=== PATIENT | female | born 1990 | race African-American/Black ===

== ENCOUNTER 2018-04-24 22:43 | Emergency (ER) | payer OTHER ==
[2018-04-24 22:52] VITALS: BP 140/77; PULSE 77; TEMP 98.6
--- NOTE | 2018-04-24 23:26 | PDOC ---
*Physical Exam - Vital Signs Last Vital Signs Temp Pulse Resp BP Pulse Ox 98.6 F 77 16 140/77 100 04/24/18 22:47 04/24/18 22:47 04/24/18 22:47 04/24/18 22:47 04/24/18 22:47 ED Treatment Course - LABORATORY CBC & Chemistry Diagram: 04/25/18 00:00 04/25/18 00:30 Medical Decision Making - Medical Decision Making 04/24/18 23:26 Pt seen by Midlevel Provider under my direct supervision Pt interviewed and examined Ancillary studies reviewed Laboratory Tests 04/25/18 04/25/18 00:00 00:00 WBC 5.5 Hgb 13.3 Hct 36.9 Plt Count 289 Urine Nitrite Negative Ur Leukocyte Esterase Trace Urine WBC (Auto) 3 Urine RBC (Auto) 1 Ur Epithelial Cells Few IMPRESSION: 1. Single living intrauterine gestation at 6 weeks 4 days plus or minus a standard deviation by crown-rump length. heart rate is 125 beats per minute. No subchorionic bleed identified. No ectopic seen. Will send Urine culture (UA not particularly concerning but given , would like to r/o asymptomatic bacteuria) Laboratory Tests 04/25/18 00:31 Blood Type AB POSITIVE I agree with plan as outlined by Midlevel Provider *DC/Admit/Observation/Transfer Diagnosis at time of Disposition: Threatened - Discharge Dispostion Disposition: HOME Condition at time of disposition: Good - Referrals - Patient Instructions Printed Discharge Instructions: DI for Threatened Additional Instructions: Thank you for choosing [facility]. It was a pleasure taking care of you. Your pelvic ultrasound was normal Recommend pelvic rest. Continue follow-up with your [facility] Return to the Emergency Department if your symptoms worsen or persist, you have fever, shortness of breath, chest pain, severe abdominal pain, vomiting, heavy vaginal bleeding or other concerning symptoms. - Post Discharge Activity
--- NOTE | 2018-04-24 23:54 | PDOC ---
History of Present Illness - General Chief Complaint: Vaginal Bleeding Stated Complaint: VAGINAL BLEEDING Time Seen by Provider: 04/24/18 23:20 History Source: Patient Exam Limitations: No Limitations Past History - Past Medical History Allergies/Adverse Reactions: Allergies Allergy/AdvReac Type Severity Reaction Status Date / Time No Known Allergies Allergy Verified 04/24/18 22:52 COPD: No - Immunization History Immunization Up to Date: No - Suicide/Smoking/Psychosocial Hx Smoking History: Never smoked Hx Alcohol Use: No Drug/Substance Use Hx: No *Physical Exam - Vital Signs Last Vital Signs Temp Pulse Resp BP Pulse Ox 98.6 F 77 16 140/77 100 04/24/18 22:47 04/24/18 22:47 04/24/18 22:47 04/24/18 22:47 04/24/18 22:47 - Physical Exam General Appearance: No: Apparent Distress Respiratory/Chest: positive: Lungs Clear, Normal Breath Sounds. negative: Respiratory Distress Cardiovascular: positive: Regular Rhythm, Regular Rate, S1, S2. negative: Murmur Female Pelvic Exam: positive: normal external exam, cervical os closed, normal adnexa, vaginal bleeding (small amount of blood in vault). negative: CMT Gastrointestinal/Abdominal: positive: Normal Bowel Sounds, Soft. negative: Tender, Distended, Guarding, Rebound Neurologic: positive: Fully Oriented, Alert, Normal Mood/Affect Moderate Sedation - Procedure Monitoring Vital Signs: Procedure Monitoring Vital Signs Temperature 98.6 F 04/24/18 22:47 Pulse Rate 77 04/24/18 22:47 Respiratory Rate 16 04/24/18 22:47 Blood Pressure 140/77 04/24/18 22:47 O2 Sat by Pulse Oximetry (%) 100 04/24/18 22:47 ED Treatment Course - LABORATORY CBC & Chemistry Diagram: 04/25/18 00:00 04/25/18 00:30 - RADIOLOGY Radiology Studies Ordered: Category Date Time Status TRANSVAGINAL US PREG [US] Stat Ultrasound 04/24/18 23:28 Ordered Medical Decision Making - Medical Decision Making 27 yo F (hx 1 , 1 miscarriage), currently around 6 weeks 6 days (based on LNMP on 03/08) presents with vaginal spotting from today along with mild lower abdominal cramps. Patient just found out yesterday she was via urine test. Has not seen an [employer] [facility] doctor yet. Denies fever, sob, cp, n/v/d, urinary complaints. Consider threatened ; r/o ectopic Plan: CBC, CMP, Bhcg, UA, type and screen, pelvic ultrasound 04/24/18 23:55 Pelvic ultrasound: IMPRESSION: 1. Single living intrauterine gestation at 6 weeks 4 days plus or minus a standard deviation by crown-rump length. heart rate is 125 beats per minute. No subchorionic bleed identified. No ectopic seen. Labs reviewed and unremarkable IUP seen on ultrasound Patient is Rh positive Likely threatened ; stable for d/c 04/25/18 02:51 *DC/Admit/Observation/Transfer Diagnosis at time of Disposition: Threatened - Discharge Dispostion Disposition: HOME Condition at time of disposition: Good Decision to Admit order: No - Referrals - Patient Instructions Printed Discharge Instructions: DI for Threatened Additional Instructions: Thank you for choosing [facility]. It was a pleasure taking care of you. Your pelvic ultrasound was normal Recommend pelvic rest. Continue follow-up with your [employer]IR[facility] Return to the Emergency Department if your symptoms worsen or persist, you have fever, shortness of breath, chest pain, severe abdominal pain, vomiting, heavy vaginal bleeding or other concerning symptoms. - Post Discharge Activity
[2018-04-25 00:11] LABS: BASO % 0.4 % (0-2.0); EOS % 0.9 % (0-4.5); HEMATOCRIT 36.9 % (32.4-45.2); HEMOGLOBIN 13.3 GM/dL (10.7-15.3); LYMPH % 28.1 % (8-40); MCH 32.7 pg (25.7-33.7); MCHC 36.1 g/dl (32.0-36.0); MEAN CELL VOLUME 90.4 fl (80-96); MEAN PLT VOLUME 8.2 fl (7.5-11.1); MONO % 11.4 % (3.8-10.2); NEUT % 59.2 % (42.8-82.8); PLATELET COUNT 289 K/MM3 (134-434); RBC 4.08 M/mm3 (3.60-5.2); RDW 13.3 % (11.6-15.6); WHITE BLOOD COUNT 5.5 K/mm3 (4.0-10.0)
[2018-04-25 00:13] LABS: URINE APPEARANCE CLEAR; URINE BILIRUBIN NEGATIVE (<2.0 mg/dL); URINE COLOR YELLOW; URINE GLUCOSE (UA) NEGATIVE (NEGATIVE); URINE KETONE TRACE (NEGATIVE); URINE LEUK ESTERASE TRACE (NEGATIVE); URINE NITRITE NEGATIVE (NEGATIVE); URINE PROTEIN 1+ (NEGATIVE)
[2018-04-25 00:27] LABS: EPI CELLS FEW /HPF (FEW); URINE MUCUS MODERATE
[2018-04-25 01:48] LABS: ANION GAP 5 MMOL/L (8-16); BLOOD UREA NITROGEN 13 mg/dL (7-18); CALCIUM 8.7 mg/dL (8.5-10.1); CHLORIDE 106 mmol/L (98-107); CO2 27 mmol/L (21-32); CREATININE 0.7 mg/dL (0.55-1.3); GLUCOSE,RANDOM 99 mg/dL (74-106); SODIUM 139 mmol/L (136-145)
== END 2018-04-25 03:10 | disposition home or self-care (01) ==
LOC: JER 22:43
DX: O26.891 Other specified pregnancy related conditions, first trimester (principal); Z3A.01 Less than 8 weeks gestation of pregnancy; O20.0 Threatened abortion
CPT/HCPCS: 36415; 76817-TC; 80048; 81003; 81015; 84702; 85025; 86850; 86900; 86901; 87086; 99282-25

== ENCOUNTER 2019-03-08 16:41 | Emergency (ER) | payer OTHER ==
[2019-03-08 16:49] VITALS: BP 163/83; PULSE 105; TEMP 99.7; BMI 34.4
--- NOTE | 2019-03-08 17:34 | PDOC ---
History of Present Illness - General Chief Complaint: Pain, Acute Stated Complaint: leg pain Time Seen by Provider: 03/08/19 16:57 History Source: Patient Exam Limitations: No Limitations - History of Present Illness Initial Comments: 03/08/19 18:02 28-year-old female currently 16 weeks with [address] in place presents to ED with complaints of pain to rectum after defecation x3. Patient states initially was pushing stools soft but continues to cause discomfort. Patient has no abdominal pain vaginal discharge or urinary complaints Is this a multiple visit Asthma Patient?: No Timing/Duration: 24 hours Severity: moderate Associated Symptoms: reports: denies symptoms Past History - Travel Traveled outside of the country in the last 30 days: No Close contact w/someone who was outside of country & ill: No - Past Medical History Allergies/Adverse Reactions: Allergies Allergy/AdvReac Type Severity Reaction Status Date / Time No Known Allergies Allergy Verified 03/08/19 18:17 Home Medications: Ambulatory Orders Pnv59/Iron,Carb,Fum/FA/Dss/Dha [Citranatal Morganza Capsule] 1 cap PO DAILY 03/08 COPD: No - Immunization History Immunization Up to Date: No - Psycho Social/Smoking Cessation Hx Smoking History: Never smoked Hx Alcohol Use: No Drug/Substance Use Hx: No Patient Lives Alone: No Lives with/in: spouse/SO Review of Systems - Review of Systems Able to Perform ROS?: Yes Constitutional: No: Symptoms Reported HEENTM: No: Symptoms Reported Respiratory: No: Symptoms reported Cardiac (ROS): No: Symptoms Reported ABD/GI: Yes: Other (rectal pain) : No: Symptoms Reported Musculoskeletal: No: Symptoms Reported Integumentary: Yes: Rash (excoriated) Neurological: No: Symptoms reported *Physical Exam - Vital Signs Last Vital Signs Temp Pulse Resp BP Pulse Ox 99.7 F H 105 H 18 163/83 99 03/08/19 16:45 03/08/19 16:45 03/08/19 16:45 03/08/19 16:45 03/08/19 16:45 - Physical Exam General Appearance: Yes: Nourished, Appropriately Dressed. No: Apparent Distress Female Pelvic Exam: positive: normal external exam Gastrointestinal/Abdominal: positive: Soft. negative: Tenderness Rectal Exam: positive: other (noted excoriated and erythematous anus/ surrounding skin). negative: hemorrhoids Extremity: positive: Normal Inspection Neurologic: positive: Motor Strength 5/5 (ambulatory) ED Treatment Course - RADIOLOGY Radiology Studies Ordered: Category Date Time Status US(SINGLE) [US] Stat Ultrasound 03/08/19 17:09 Ordered Medical Decision Making - Medical Decision Making 03/08/19 17:07 Chief complaint: Rectal excoriation and redness which began after she was exerting during defecation 2 days ago but continues with discomfort. Patient denies hemorrhoids currently [address] weeks [address], Exam noted erythematous excoriated anus and surrounding skin no visible hemorrhoid Plan: Urinalysis urine culture ultrasound with lidocaine viscous 03/08/19 18:13 Laboratory Tests 03/08/19 17:21 Urine Protein Negative Urine Glucose (UA) Negative Urine Ketones Negative Urine Blood Negative Urine Nitrite Negative Urine Bilirubin Negative Ur Leukocyte Esterase Negative 03/08/19 18:19 Ultrasound shows intrauterine 16 weeks 16 weeks 4 days with heart rate of 156 bpm. Patient states relief with lidocaine gel Discharge - Discharge Information Problems reviewed: Yes Clinical Impression/Diagnosis: Rectal pain Condition: Improved Disposition: HOME - Follow up/Referral - Patient Discharge Instructions Additional Instructions: . Please sit on a soft pillow to avoid pressure. Drink plenty fluids and stay active to decrease constipation. Use lidocaine 3 times a day as needed applying a thin layer lubricating ointment such as Neosporin ointment or Aquaphor - Post Discharge Activity
[2019-03-08 17:38] LABS: URINE APPEARANCE CLEAR; URINE BILIRUBIN NEGATIVE (NEGATIVE); URINE COLOR YELLOW; URINE GLUCOSE (UA) NEGATIVE (NEGATIVE); URINE KETONE NEGATIVE (NEGATIVE); URINE LEUK ESTERASE NEGATIVE (NEGATIVE); URINE NITRITE NEGATIVE (NEGATIVE); URINE PROTEIN NEGATIVE (NEGATIVE)
[2019-03-08] MEDS ORDERED: LIDOCAINE HCL 2% JELLY 10 ML CARTRIDGE PR ONE (18:07)
[2019-03-08] MEDS ORDERED: LIDOCAINE HCL 2% JELLY 10 ML CARTRIDGE ONE (18:10)
== END 2019-03-08 18:34 | disposition home or self-care (01) ==
LOC: JER 16:41
DX: O26.892 Other specified pregnancy related conditions, second trimester (principal); K62.89 Other specified diseases of anus and rectum; O34.32 Maternal care for cervical incompetence, second trimester; Z3A.16 16 weeks gestation of pregnancy
CPT/HCPCS: 76801-TC; 81003; 87086; 99282-25

== ENCOUNTER 2024-02-22 19:49 | Emergency (ER) | payer OTHER ==
[2024-02-22 19:58] VITALS: BP 133/71; PULSE 81; RESP 16; TEMP 98.6; BMI 29.7
== END 2024-02-22 20:23 | disposition home or self-care (01) ==
LOC: JER 19:49
DX: T19.2XXA Foreign body in vulva and vagina, initial encounter (principal)
CPT/HCPCS: 99283-25